=== PATIENT | female | born 1980 | race Caucasian/White ===

== ENCOUNTER 2023-12-30 08:53 | Emergency (ER) | payer OTHER ==
--- NOTE | 2023-12-30 09:38 | RAD REPORT ---
EXAM DESCRIPTION: CT - Head Brain Wo Cont - 12/30/2023 9:33 am CLINICAL HISTORY: CONFUSED Headache, drowsiness, hypertension COMPARISON: No comparisons TECHNIQUE: All CT scans are performed using dose optimization technique as appropriate and may inclu de automated exposure control or mA/KV adjustment according to patient size. FINDINGS: No intracranial hemorrhage, hydrocephalus or extra-axial fluid collection.No areas of brai n edema or evidence of midline shift. The paranasal sinuses and mastoids are clear. The calvarium is intact. IMPRESSION: No acute intracranial abnormality.
--- NOTE | 2023-12-30 10:01 | RAD REPORT ---
EXAM DESCRIPTION: RAD - Chest Single View - 12/30/2023 9:56 am CLINICAL HISTORY: COUGH Chest pain. COMPARISON: No comparisons FINDINGS: Portable technique limits examination quality. The lungs are grossly clear. The heart is normal in size. No displaced fractures. IMPRESSION: No acute intrathoracic process suspected.
[2023-12-30 10:12] LABS: Absolute Basophils 0.1 K/uL (0-0.5); Absolute Eosinophils 0.2 K/uL (0-0.5); Absolute Lymphocytes (CBC) 1.2 K/uL (0.7-4.9); Absolute Monocytes 0.4 K/uL (0.1-1.3); Absolute Neutrophil 4.5 K/uL (1.8-8.0); Basophils % 1.3 % (0-1.3); Eosinophils % 3.7 % (0-4.4); Hematocrit 24.8 % (36.0-45.0); Lymphocytes % 18.7 % (15.3-44.8); MCH 17.1 pg (27.0-35.0); MCHC 28.3 g/dL (32.0-36.0); MCV 60.5 fL (80-100); MPV 8.5 fL (7.6-11.3); Neutrophils % 70.3 % (41.7-73.7); Nucleated Red Blood Cells % 0.1 % (0-0); Platelets 249 thou/uL (152-406); Red Cell Distribution Width 20.8 % (12.1-15.2)
[2023-12-30 10:15] LABS: Sqamous Epithelial <5 /HPF (None Seen); Transitional Epithelial <5 /HPF (None Seen); Urine Bacteria None Seen /HPF (<20); Urine Bilirubin NEGATIVE (Negative); Urine Blood Negative (Negative); Urine Clarity Clear (Clear); Urine Color Light-Yellow (Yellow); Urine Culture Reflex Order NOT NEEDED; Urine Glucose NEGATIVE (Negative); Urine Ketones NEGATIVE (Negative); Urine Micro Reflex YN NO BILL MICROSCOPIC; Urine Nitrite NEGATIVE (Negative); Urine Protein NEGATIVE (Negative); Urine RBC <5 /HPF (None Seen); Urine Urobilinogen Normal (Normal); Urine WBC <5 /HPF (<5)
[2023-12-30 10:21] LABS: SARS-CoV-2 Antigen CONTROL BLUE LINE VIS/BG OK; SARS-CoV-2 Antigen Rapid Res Negative (Negative)
[2023-12-30 10:39] LABS: Albumin 3.5 g/dL (3.4-5.0); Albumin/Globulin Ratio 0.9 (1.1-1.8); Anion Gap 8.7 mEq/L (5.0-15.0); Bilirubin Direct 0.1 mg/dL (0-0.2); Bilirubin Indirect, Calculated 0.3 mg/dL (0.2-0.8); Bilirubin Total 0.4 mg/dL (0.2-1.0); Globulin 3.9 g/dL (2.3-3.5); Potassium 3.7 mEq/L (3.5-5.1); Protein, Total 7.4 g/dL (6.4-8.2); Troponin High Sensitivity 4.7 pg/mL (<58.9)
[2023-12-30] MEDS ORDERED: NA CHLORIDE 0.9% 250 ML ONE (11:06)
[2023-12-30 11:17] LABS: Percent Reticulocyte Count 1.45 % (0.4-2.05); RBC Red Blood Cell Count 3.85 M/uL (3.86-4.86)
[2023-12-30 11:42] LABS: Ferritin 9.7 ng/mL (8-388)
[2023-12-30 11:48] LABS: Platelet Estimate ADEQ; White Blood Cell Scan OK (OK)
[2023-12-30 11:49] LABS: Anisocytosis 2+; Blood Morphology Comment NOTED (NOT SEEN); Hypochromasia 1+; Microcytosis 1+; Ovalocytes 1+
--- NOTE | 2023-12-30 16:34 | ER ---
Nurse's Notes [facility] Name: Bhumika Pastor Age: 43 yrs Sex: Female : 1980 Arrival Date: 12/30/2023 Time: 08:53 Bed 19 Private MD: Diagnosis: Iron deficiency anemia, unspecified Presentation: 12/29 08:56 Chief complaint: Patient states: Awoke today not feeling good, fatigued. She got to [facility] she has GOMEZ, shakiness, high BP, trouble gaining thoughts. Coronavirus screen: Vaccine status: Patient reports being unvaccinated. Client denies travel out of the [place] in the last 14 days. At this time, the client does not indicate any symptoms associated with coronavirus-19. Ebola Screen: Patient denies travel to an Ebola-affected area in the 21 days before illness onset. Initial Sepsis Screen: Does the patient meet any 2 criteria? No. Patient's initial sepsis screen is negative. Does the patient have a suspected source of infection? No. Patient's initial sepsis screen is negative. Risk Assessment: Do you want to hurt yourself or someone else? Patient reports no desire to harm self or others. Onset of symptoms was December 30, 2023. 08:56 Method Of Arrival: Ambulatory [facility] 08:56 Acuity: JONNATHAN 3 ll1 Triage Assessment: 09:06 General: Appears uncomfortable, Behavior is cooperative, appropriate for age, anxious. ll1 General: Reports fatigue for BP elevated. Pain: Complains of pain in head Pain currently is 6 out of 10 on a pain scale. Quality of pain is described as aching. Neuro: Reports headache weakness shakiness. Historical: - Allergies: 09:02 Red Dye; ll1 - PMHx: 09:02 Anxiety; ll1 - PSHx: 09:02 endometriosis lap.; ll1 - Immunization history:: Adult Immunizations up to date. - Infectious Disease History:: Denies. - Social history:: Smoking status: Patient reports the use of cigarette tobacco products, smokes one-half pack cigarettes per day. Screenin:14 [facility] ED Fall Risk Assessment (Adult) History of falling in the last 3 months, ld1 including since admission No falls in past 3 months (0 pts). Abuse screen: Denies threats or abuse. Denies injuries from another. Nutritional screening: No deficits noted. Tuberculosis screening: No symptoms or risk factors identified. Assessment: 09:14 General: Appears in no apparent distress. comfortable, Behavior is calm, cooperative, ld1 appropriate for age. Pain: Denies pain. Neuro: Level of Consciousness is awake, alert, confused, Oriented to person, place, time, situation. Neuro: Reports dizziness. Cardiovascular: Capillary refill < 3 seconds Patient's skin is warm and dry. Rhythm is sinus rhythm. Respiratory: Airway is patent Respiratory effort is even, unlabored. GI: Abdomen is flat, non-distended. : No signs and/or symptoms were reported regarding the genitourinary system. EENT: No signs and/or symptoms were reported regarding the EENT system. Derm: No signs and/or symptoms reported regarding the dermatologic system. Musculoskeletal: No signs and/or symptoms reported regarding the musculoskeletal system. 10:15 Reassessment: Patient appears in no apparent distress at this time. No changes from ld1 previously documented assessment. Patient and/or family updated on plan of care and expected duration. Pain level reassessed. Patient is alert, oriented x 3, equal unlabored respirations, skin warm/dry/pink. 12:27 Reassessment: Patient appears in no apparent distress at this time. Patient and/or as6 family updated on plan of care and expected duration. Pain level reassessed. Patient is alert, oriented x 3, equal unlabored respirations, skin warm/dry/pink. 14:39 Reassessment: Patient appears in no apparent distress at this time. Patient and/or as6 family updated on plan of care and expected duration. Pain level reassessed. Patient is alert, oriented x 3, equal unlabored respirations, skin warm/dry/pink. Vital Signs: 08:56 BP 146 / 95; Pulse 87; Resp 16; Temp 97.1; Pulse Ox 100% ; Weight 81.65 kg; Height 5 ll1 ft. 6 in. ; Pain 6/10; 09:14 BP 153 / 94; Pulse 77; Resp 18; Pulse Ox 99% on R/A; ld1 10:15 BP 148 / 86; Pulse 87; Resp 18; Pulse Ox 97% on R/A; ld1 11:29 BP 157 / 106; Pulse 97; Resp 18; Pulse Ox 100% on R/A; ld1 12:27 BP 133 / 72; Pulse 85; Resp 19 S; Pulse Ox 99% on R/A; as6 14:00 BP 136 / 95; Pulse 75; Resp 19 S; Temp 97.2(TE); Pulse Ox 100% on R/A; as6 16:00 BP 141 / 96; Pulse 76; Resp 15 S; Temp 97.4(TE); Pulse Ox 99% on R/A; as6 08:56 Body Mass Index 29.05 (81.65 kg, 167.64 cm) ll1 08:56 Pain Scale: Adult ll1 ED Course: 08:54 Patient arrived in ED. rg4 08:54 Arm band placed on. ll1 09:02 Triage completed. ll1 09:04 Kacey Allen, JEAN-CLAUDE is Primary Nurse. ld1 09:13 Barber Dang MD is Attending Physician. ec2 09:14 Patient has correct armband on for positive identification. Placed in gown. Bed in low ld1 position. Call light in reach. Side rails up X2. clinical research monitor on. Pulse ox on. NIBP on. Door closed. Noise minimized. Warm blanket given. 09:14 No provider procedures requiring assistance completed. ld1 09:34 CT Head Brain wo Cont In Process Unspecified. EDMS 09:34 UAM Sent. ld1 09:41 SARS RAPID Sent. ld1 09:42 Influenza Screen (a \T\ B) Sent. ld1 09:42 Inserted saline lock: 22 gauge in right antecubital area, using aseptic technique. ld1 Blood collected. 09:58 XRAY Chest (1 view) In Process Unspecified. EDMS 14:01 Provided Education on: Blood Transfusion. as6 14:01 One-on-one care X 15 minutes. as6 16:38 IV discontinued, intact, bleeding controlled, No redness/swelling at site. Pressure as6 dressing applied. Administered Medications: No medications were administered Medication: 09:14 VIS not applicable for this client. ld1 13:45 Blood products: PRBCs X 1 unit given. See transfusion record. as6 Intake: 16:29 IV: 500ml (Blood Products); Total: 500ml. as6 Outcome: 16:29 Condition: stable as6 16:34 Discharge ordered by . ec2 16:41 Discharged to home ambulatory, with significant other, as6 16:41 Discharge instructions given to patient, Instructed on discharge instructions, follow up and referral plans. Demonstrated understanding of instructions, follow-up care, 16:42 Patient left the ED. as6 Signatures: Dispatcher [employer] Nilsa Garcia rg4 Mary Charlton RN RN ll1 Kacey Allen RN RN ld1 Reed Franco RN RN as6 Barber Dang MD MD ec2 Corrections: (The following items were deleted from the chart) 09:06 08:56 BP 146 / 95; Pulse 87bpm; Resp 16bpm; Pulse Ox 100%; 81.65 kg; Height 5 ft. 6 ll1 in.; BMI: 29.0; Pain 6/10, Adult; ll1
--- NOTE | 2023-12-30 16:34 | EDPHYS ---
Physician Documentation [facility] Name: Bhumika Pastor Age: 43 yrs Sex: Female : 1980 Arrival Date: 12/30/2023 Time: 08:53 Bed 19 Private MD: ED Physician Barber Dang HPI: 12/29 09:24 This 43 yrs old Female presents to ER via Ambulatory with complaints of High Blood ec2 Pressure, Headache, Doesn't Feel Right. 09:24 Patient arrives today for multiple complaints including concern for elevated blood ec2 pressure, headache, fatigue and generalized weakness. Patient feeling generally unwell started this morning. Patient reports no difficulty breathing, no vomiting or diarrhea, no fevers or chills.. Historical: - Allergies: 09:02 Red Dye; ll1 - PMHx: 09:02 Anxiety; ll1 - PSHx: 09:02 endometriosis lap.; ll1 - Immunization history:: Adult Immunizations up to date. - Infectious Disease History:: Denies. - Social history:: Smoking status: Patient reports the use of cigarette tobacco products, smokes one-half pack cigarettes per day. ROS: 09:25 Constitutional: as per hpi ec2 Exam: 09:25 Constitutional: GEN: NAD Head: atraumatic Eyes: EOMI Ears: External ears are ec2 normal. CV: regular rate LUNGS: no respiratory distress ABD: non-distended SKIN: no evidence of rashes MSK: no evidence of trauma NEURO: moves all extremities equally, cranial nerves II through XII intact, strength intact all 4 extremities. Vital Signs: 08:56 BP 146 / 95; Pulse 87; Resp 16; Temp 97.1; Pulse Ox 100% ; Weight 81.65 kg; Height 5 ll1 ft. 6 in. ; Pain 6/10; 09:14 BP 153 / 94; Pulse 77; Resp 18; Pulse Ox 99% on R/A; ld1 10:15 BP 148 / 86; Pulse 87; Resp 18; Pulse Ox 97% on R/A; ld1 11:29 BP 157 / 106; Pulse 97; Resp 18; Pulse Ox 100% on R/A; ld1 12:27 BP 133 / 72; Pulse 85; Resp 19 S; Pulse Ox 99% on R/A; as6 14:00 BP 136 / 95; Pulse 75; Resp 19 S; Temp 97.2(TE); Pulse Ox 100% on R/A; as6 16:00 BP 141 / 96; Pulse 76; Resp 15 S; Temp 97.4(TE); Pulse Ox 99% on R/A; as6 08:56 Body Mass Index 29.05 (81.65 kg, 167.64 cm) ll1 08:56 Pain Scale: Adult ll1 MDM: 09:14 Patient medically screened. ec2 09:25 Data reviewed: vital signs. ED course: Patient arrives today for evaluation of feeling ec2 unwell. Examination remarkable for neuro intact individual is otherwise in no acute distress. Will obtain lab work, CT scan of the head, chest x-ray. Evaluate for electrolyte disturbances, anemia, dehydration, intracranial mass, UTI. . 09:56 ED course: EKG independently reviewed and interpreted by me, shows normal sinus rhythm, ec2 rate of 74, no acute ST segment elevations, nonactionable intervals.. 10:02 ED course: Chest x-ray as well as CT scan of the head showed no acute process. . ec2 10:40 ED course: CBC shows anemia with hemoglobin of 7.0. Patient with microcytic anemia, ec2 suspect likely iron deficiency causing patient's symptoms. Given the patient's symptomatic anemia, will transfuse a unit of blood as well. . 11:01 ED course: Further discussion with patient, he reports that she has a history of iron ec2 deficiency anemia, has not required transfusions in the past. Denies any rectal bleeding, denies melena. . 13:03 ED course: Iron markedly low at 17, ferritin also lower ranges of normal. . ec2 16:38 ED course: Patient tolerated blood transfusion without issue. Will discharge home, ec2 instructed on iron supplementation, she can follow-up primary care doctor. Informed her on return precautions. 12/29 09:24 Order name: Basic Metabolic Panel; Complete Time: 10:41 ec2 12/29 09:24 Order name: CBC with Diff; Complete Time: 13:03 ec2 12/29 09:24 Order name: LFT's; Complete Time: 10:41 ec2 12/29 09:24 Order name: Troponin HS; Complete Time: 10:41 ec2 12/29 09:24 Order name: UAM; Complete Time: 10:24 ec2 12/29 09:25 Order name: Influenza Screen (a \T\ B); Complete Time: 10:37 ec2 12/29 09:25 Order name: SARS RAPID; Complete Time: 10:24 ec2 12/29 10:29 Order name: CBC Smear Scan; Complete Time: 13:03 EDMS 12/29 10:39 Order name: Ferritin; Complete Time: 13:03 ec2 12/29 10:39 Order name: TIBC; Complete Time: 13:03 ec2 12/29 10:39 Order name: Retic Count; Complete Time: 11:25 ec2 12/29 10:40 Order name: Packed Rbc Leukored 2 12/29 10:42 Order name: ABO/RH typing [facility] 12/29 10:42 Order name: Antibody Screen [facility] 12/29 12:55 Order name: ABO/RH no charge; Complete Time: 13:03 EDMS 12/29 09:24 Order name: XRAY Chest (1 view); Complete Time: 10:02 ec2 12/29 09:24 Order name: CT Head Brain wo Cont; Complete Time: 10:02 ec2 12/29 09:24 Order name: Cardiac monitoring; Complete Time: 09:53 ec2 12/29 09:24 Order name: EKG - Nurse/Tech; Complete Time: 09:53 ec2 12/29 09:24 Order name: IV Saline Lock; Complete Time: 09:42 ec2 12/29 09:24 Order name: Labs collected and sent; Complete Time: 09:42 ec2 12/29 09:24 Order name: O2 Per Protocol; Complete Time: 09:26 ec2 12/29 09:24 Order name: O2 Sat Monitoring; Complete Time: 09:26 ec2 12/29 10:40 Order name: Consent for Blood Transfusion; Complete Time: 11:01 ec2 12/29 10:40 Order name: IV Saline Lock; Complete Time: 11:01 ec2 Administered Medications: No medications were administered Disposition Summary: 12/30/23 16:34 Discharge Ordered Notes: Location: Home ec2 Condition: Stable ec2 Diagnosis - Iron deficiency anemia, unspecified ec2 Followup: ec2 - With: Private Physician - When: - Reason: Re-evaluation by your physician Discharge Instructions: - Discharge Summary Sheet ec2 - Iron Deficiency Anemia, Adult ec2 - Blood Transfusion, Adult ec2 Forms: - Work release form as6 - Medication Reconciliation Form ec2 - Thank You Letter ec2 - Antibiotic Education ec2 - Prescription Opioid Use ec2 - Patient Portal Instructions ec2 - Leadership Thank You Letter ec2 Critical care time excluding procedures: 10:40 Critical care time: Bedside Care: 30 minutes, Consultation: 5 minutes. Total time: 35 ec2 minutes Signatures: Dispatcher [employer] Mary Pyle RN RN ll1 Kacey Allen RN RN ld1 Barber Dang MD MD ec2 Corrections: (The following items were deleted from the chart) 09:25 09:25 Head Brain Wo Cont+CT.RAD.BRZ ordered. EDMS EDMS 09:25 09:25 Influenza Screen (A \T\ B)+BA.LAB.BRZ ordered. EDMS EDMS 09:25 09:25 SARS-COV-2 Antigen Rapid+I.LAB.BRZ ordered. EDMS EDMS 10:39 10:39 FERRITIN+C.LAB.BRZ ordered. EDMS EDMS 10:39 10:39 FERRITIN+C.LAB.BRZ ordered. EDMS EDMS 10:39 10:39 TRANSFERRIN SAT/IRON BINDING+C.LAB.BRZ ordered. EDMS EDMS 10:39 10:39 RETIC COUNT+H.LAB.BRZ ordered. EDMS EDMS 10:56 10:40 TYPE AND SCREEN+BB.LAB.BRZ ordered. EDMS EDMS
[2023-12-30 18:13] VITALS: BP 141/96; TEMP 97.4; O2SAT 99
--- NOTE | 2023-12-31 17:49 | EKG ---
Test Date: 2023-12-30 Test Time: 09:50:25 Internet Ecommerce Specialist: Markos DOSHI MEASUREMENT RESULTS: Intervals: Rate: 74 HI: 130 QRSD: 82 QT: 436 QTc: 483 [place]: P: 28 HI: 130 QRS: 13 T: 11 INTERPRETIVE STATEMENTS: Normal sinus rhythm Prolonged QT Abnormal ECG Compared to ECG 12/30/2023 09:49:34 No significant changes Electronically Signed On 12-31-23 17:46:45 CDT by Dejuan Arnold
--- NOTE | 2023-12-31 17:49 | EKG ---
Test Date: 2023-12-30 Test Time: 09:49:34 Senior Administrative Associate: Markos SI MEASUREMENT RESULTS: Intervals: Rate: 74 AR: 120 QRSD: 86 QT: 434 QTc: 481 [place]: P: 35 AR: 120 QRS: 13 T: 11 INTERPRETIVE STATEMENTS: Normal sinus rhythm Prolonged QT Abnormal ECG No previous ECG available for comparison Electronically Signed On 12-31-23 17:46:46 CDT by Dejuan Arnold
== END 2023-12-30 16:42 | disposition home or self-care (01) ==
LOC: ER 08:53
PROC: 30233N1 Transfusion of Nonautologous Red Blood Cells into Peripheral Vein, Percutaneous Approach (ICD-10-PCS; principal; 2023-12-30)
DX: D50.9 Iron deficiency anemia, unspecified (principal); F17.210 Nicotine dependence, cigarettes, uncomplicated; Z11.52 Encounter for screening for COVID-19; Z91.02 Food additives allergy status
CPT/HCPCS: 85025; 81001; 80048; 36415; 86900; 86850; 85044; 86901; 80076; 86920; 84484; 82728; 83540; 84466; 87804 ×2; 70450; 71045; 87811; 36430; P9016; J7050; 93005